=== PATIENT | female | born 1975 | race Caucasian/White ===

== ENCOUNTER 2022-01-23 12:01 | Outpatient (CLI) | payer OTHER, SELFPAY ==
[2022-01-23 14:21] LABS: Albumin* 4.2 g/dL (3.3-5.0); Chloride* 106 mmol/L (96-114); Potassium* 4.4 mmol/L (3.6-5.1); Sodium* 138 mmol/L (135-149)
[2022-01-23 14:23] LABS: Carbon Dioxide* 25 mmol/L (20-32); Cholesterol* 151 mg/dL (90-199); Creatinine* 0.7 mg/dL (0.5-1.5); Estimated Glomerular Filt Rate 107 ml/min
[2022-01-23 14:24] LABS: Alkaline Phosphatase* 105 U/L (40-150); Aspartate Amino Transferase* 24 U/L (12-35); Bilirubin Total* 0.7 mg/dL (0.1-1.5); Blood Urea Nitrogen* 15 mg/dL (5-24); Glucose* 97 mg/dL (60-115); Triglycerides* 276 mg/dL (40-149)
[2022-01-23 14:25] LABS: Alanine Aminotransferase* 23 U/L (4-35); HDL Cholesterol* 36 mg/dL (>=50); LDL Cholesterol Calculated 60 mg/dL (<100)
== END 2022-01-23 12:02 | disposition home or self-care (01) ==
PROVIDERS: PCP Physician Assistant Medical; Visit Provider Physician Assistant Medical
DX: Z01.419 Encounter for gynecological examination (general) (routine) without abnormal findings (principal); Z13.6 Encounter for screening for cardiovascular disorders
CPT/HCPCS: 80053; 80061

== ENCOUNTER 2022-03-13 13:31 | Outpatient (CLI) | payer OTHER, SELFPAY ==
--- NOTE | 2022-03-13 13:40 | CRLHL7_ITS ---
For Patients: As a result of the Century Cures Act, medical imaging exams and procedure reports are released immediately into your electronic medical record. You may view this report before your referring provider. If you have questions, please contact your health care provider. BILATERAL SCREENING MAMMOGRAM WITH COMPUTER-AIDED DETECTION AND TOMOSYNTHESIS TECHNIQUE: CC and MLO views were obtained. These mammographic images have been obtained using full-field digital technique. These mammographic images were interpreted with the benefit of computer-aided detection. Breast Tomosynthesis was used in this interpretation. COMPARISON FILM: 01/11/21, 11/13/19, 10/08/18. FINDINGS: The breasts are extremely dense, which lowers the sensitivity of mammography IMPRESSION: There is no radiographic evidence for malignancy. ASSESSMENT: BI-RADS Category 2: Benign RECOMMENDATION: Routine screening mammogram in 1 year. A lay language report of this examination will be provided to the patient. rOi Marie M.D. Diagnostic Radiologist [email or web address] Transcribed: 3:31 [email or web address] moyer/Dictated by: Ori Marie MD @ 03/14/2022 9:08:00 AM (Electronically Signed)
== END 2022-03-13 13:32 | disposition home or self-care (01) ==
PROVIDERS: PCP Physician Assistant Medical; Visit Provider Physician Assistant Medical
DX: Z12.31 Encounter for screening mammogram for malignant neoplasm of breast (principal); R92.2 Inconclusive mammogram
CPT/HCPCS: 77063; 77067

== ENCOUNTER 2023-03-08 08:06 | Outpatient (CLI) | payer OTHER, SELFPAY | END 2023-03-08 08:07 | disposition home or self-care (01) | LOC: LKVREF 17:23 | PROVIDERS: PCP Physician Assistant Medical; Referring Provider Physician Assistant Medical; Visit Provider Physician Assistant Medical | DX: Z00.00 Encounter for general adult medical examination without abnormal findings (principal); E78.5 Hyperlipidemia, unspecified; R73.01 Impaired fasting glucose; R73.09 Other abnormal glucose | CPT/HCPCS: 80053; 80061 ==

== ENCOUNTER 2023-03-22 15:38 | Outpatient (CLI) | payer OTHER, SELFPAY ==
--- NOTE | 2023-03-22 16:00 | CRLHL7_ITS ---
For Patients: As a result of the Century Cures Act, medical imaging exams and procedure reports are released immediately into your electronic medical record. You may view this report before your referring provider. If you have questions, please contact your health care provider. INDICATION: Enlarged lymph nodes COMPARISON: none TECHNIQUE: Kiser scale and color Doppler images were acquired of the thyroid gland. FINDINGS: The thyroid gland demonstrates normal uniform echogenicity and has a smooth outer contour. The right lobe measures 3.7 x 0.9 x 1.1 cm and the left lobe measures 3.3 x 0.8 x 0.9 cm in size. There are no suspicious masses or nodules. The color Doppler images demonstrate normal vascularity. Isthmus measures 3 millimeters. Mildly prominent lymph nodes are present bilaterally measuring up to 1.9 cm. IMPRESSION: Normal thyroid ultrasound. Mildly prominent bilateral cervical lymph nodes, likely reactive. ENT referral suggested. Dictated by Ori Marie MD @ 03/23/2023 8:59:04 AM (Electronically Signed)
== END 2023-03-22 15:39 | disposition home or self-care (01) ==
LOC: US 15:40
PROVIDERS: PCP Physician Assistant Medical; Visit Provider Physician Assistant Medical
DX: R59.1 Generalized enlarged lymph nodes (principal)
CPT/HCPCS: 76536

== ENCOUNTER 2023-04-18 16:20 | Outpatient (CLI) | payer OTHER, SELFPAY | END 2023-04-18 16:21 | disposition home or self-care (01) | LOC: LKVREF 16:20 | PROVIDERS: PCP Physician Assistant Medical; Visit Provider Otolaryngology | DX: G25.81 Restless legs syndrome (principal) | CPT/HCPCS: 82728 ==

== ENCOUNTER 2023-05-02 15:34 | Outpatient (CLI) | payer OTHER, SELFPAY ==
--- NOTE | 2023-05-02 16:00 | CT_ITS ---
Patient: MEHRAN CORBETT Facility:?[facility] Patient ID:?[id number] Site Patient ID:?[id number]. Site :?1975 Study:?CT-Sinus W/O-05/02/2023 4:24:41 PM Ordering Physician:AARON Final Report: INDICATION: Chronic sinusitis. TECHNIQUE: Noncontrast CT images of the paranasal sinuses. COMPARISON: None. FINDINGS: No air-fluid levels to suggest acute sinusitis. The maxillary sinuses are clear. The ethmoid infundibula are widely patent. Minimal mucosal thickening in the frontal recesses. The frontal sinuses are otherwise clear. Minimal mucosal thickening in the ethmoid air cells. Minimal mucosal thickening in the left sphenoid sinus. The right sphenoid sinus is clear. The left sphenoid ethmoid recess is opacified. The right sphenoethmoidal recess is clear. There is 3 mm leftward nasal septal deviation and 3 mm leftward directed septal spur contacting the left inferior nasal turbinate. No nasal cavity masses. The mastoid air cells are clear. Advanced left and moderate right temporomandibular joint degenerative changes. IMPRESSION: 1. Minimal paranasal sinus mucosal disease. No air-fluid levels to suggest acute sinusitis. 2. Leftward nasal septal deviation and leftward directed septal spur contacting the left inferior nasal turbinate. Please note that all CT scans at this facility use dose modulation, iterative reconstruction, and/or weight-based dosing when appropriate to reduce radiation dose to as low as reasonably achievable. Dictated by José Miguel Bowen MD @ 05/02/2023 5:08:03 PM Signed by:?José Miguel Bowen MD @05/02/2023 5:08:03 PM (Electronic Signature)
--- NOTE | 2023-05-02 16:30 | CT_ITS ---
Patient: MEHRAN CORBETT Facility:?[facility] Patient ID:?[id number] Site Patient ID:?[id number]. Site :?1975 Study:?CT-ST Neck W/ISOVUE 370 98CC-05/02/2023 4:25:16 PM Ordering Physician:AARON Final Report: INDICATION: RT TONSIL PAIN COMPARISON: none TECHNIQUE: CT ST Neck W/ISOVUE 370 98CC Please note that all CT scans at this facility use dose modulation, iterative reconstruction, and/or weight-based dosing when appropriate to reduce radiation dose to as low as reasonably achievable. FINDINGS: The CT images demonstrate normal aeration of the mastoid air cells and middle ear cavities. The paranasal sinuses are clear. The nasopharynx appears normal. The parotid and submandibular glands are of normal size and have uniform enhancement. The oropharynx appears normal. The valleculae, epiglottis, aryepiglottic folds and piriform sinuses appear normal. There is a normal appearance of the larynx and subglottic trachea. The thyroid gland is of normal size and has uniform density. There is no evidence of lymphadenopathy within the anterior and posterior cervical triangles or within the supraclavicular region. Lung apices are clear. Degenerative disc disease C5-6 and C6-7. IMPRESSION: Negative neck CT. Please note that all CT scans at this facility use dose modulation, iterative reconstruction, and/or weight-based dosing when appropriate to reduce radiation dose to as low as reasonably achievable. Dictated by Ori Marie MD @ 05/03/2023 9:19:47 AM Signed by:?Ori Marie MD @05/03/2023 9:19:47 AM (Electronic Signature)
== END 2023-05-02 15:35 | disposition home or self-care (01) ==
LOC: CT 15:36
PROVIDERS: PCP Physician Assistant Medical; Visit Provider Otolaryngology
DX: J32.9 Chronic sinusitis, unspecified (principal); J34.2 Deviated nasal septum; R09.89 Other specified symptoms and signs involving the circulatory and respiratory systems
CPT/HCPCS: 70486; 70491; Q9967

== ENCOUNTER 2023-05-28 15:11 | Outpatient (CLI) | payer OTHER, SELFPAY ==
--- NOTE | 2023-05-28 15:20 | MM_ITS ---
Patient: MEHRAN CORBETT Facility:?[facility] Patient ID:?[id number] Site Patient ID:?[id number]. Site :?1975 Study:?XRay-Breast Bilateral 3D W/CAD-05/28/2023 3:35:59 PM Ordering Physician:Angely Final Report: BILATERAL SCREENING MAMMOGRAM WITH COMPUTER-AIDED DETECTION AND TOMOSYNTHESIS TECHNIQUE: CC and MLO views were obtained. These mammographic images have been obtained using full-field digital technique. These mammographic images were interpreted with the benefit of computer-aided detection. Breast Tomosynthesis was used in this interpretation. COMPARISON FILM: 03/13/22, 01/11/21, 11/13/19. FINDINGS: The breasts are extremely dense, which lowers the sensitivity of mammography IMPRESSION: There is no radiographic evidence for malignancy. ASSESSMENT: BI-RADS Category 1: Negative RECOMMENDATION: Routine screening mammogram in 1 year. A lay language report of this examination will be provided to the patient. Ori Marie M.D. Diagnostic Radiologist [email or web address] Transcribed: 11:13 ajaja moyer/Dictated by: Ori Marie MD @ 05/29/2023 8:50:00 AM Signed by:?Ori Marie MD @05/29/2023 12:07:29 PM (Electronic Signature)
== END 2023-05-28 15:12 | disposition home or self-care (01) ==
LOC: MAMMO 15:11
PROVIDERS: PCP Physician Assistant Medical; Visit Provider Physician Assistant Medical
DX: Z12.31 Encounter for screening mammogram for malignant neoplasm of breast (principal); R92.2 Inconclusive mammogram
CPT/HCPCS: 77063; 77067

== ENCOUNTER 2023-07-02 19:09 | Outpatient (CLI) | payer OTHER, SELFPAY ==
--- NOTE | 2023-07-11 13:19 | W.PM.SLEEP ---
Sleep Study Details Details Interpreting Provider: Wesley Hanson Date of Sleep Study: 07/02/23 Sleep Study Details: STUDY TYPE:? Home unattended ? BMI:? 33.9 ORDERING PROVIDER:? Anel INDICATION:? Concern about sleep apnea ? SLEEP SUMMARY:? 593.1 minutes monitored RESPIRATORY SUMMARY:? AHI 13.5, supine AHI 24.5, left lateral 3.3, right lateral 5.9 Low oxygen 83 7.3% of study oxygen less than 90% Snoring 60.8% PERIODIC LIMB MOVEMENTS OF SLEEP:? Not recorded CARDIAC:? Range 50-94, mean 60 IMPRESSION:? Mild obstructive sleep apnea with supine position dependency RECOMMENDATION: Treatment options include positional therapy, CPAP, dental appliance and/or airway expansion surgery. Weight loss may also be beneficial
== END 2023-07-02 19:10 | disposition home or self-care (01) ==
LOC: SLEEP 19:09
PROVIDERS: PCP Physician Assistant Medical; Visit Provider Otolaryngology
DX: G47.33 Obstructive sleep apnea (adult) (pediatric) (principal)
CPT/HCPCS: 95806